=== PATIENT | female | born 1950 | race Asian ===

== ENCOUNTER 2018-10-24 13:34 | Outpatient (CLI) | payer OTHER ==
--- NOTE | 2018-10-24 14:11 | RAD ---
XR Thoracic Spine 2 View History: [T8 compression fracture] Comparison: None. Findings: There is a compression deformity at T8 with approximately 50% anterior height loss with 10% posterior height loss. No other compression fracture is appreciated. Visualized posterior ribs are unremarkable. Impression: T8 compression fracture as described
== END 2018-10-24 13:35 | disposition home or self-care (01) ==
LOC: TBSIIMAG 13:34
PROVIDERS: ATTEND Surgery
DX: S22.069D Unspecified fracture of T7-T8 vertebra, subsequent encounter for fracture with routine healing (principal)
CPT/HCPCS: 72070; 72100

== ENCOUNTER 2018-12-12 09:40 | Outpatient (CLI) | payer OTHER ==
--- NOTE | 2018-12-12 10:14 | RAD ---
Radiograph thoracic spine 3 views: DATE: 12/12/2018 HISTORY: Follow-up T8 compression fracture COMPARISON: 10/24/2018 FINDINGS: Collapse of the T8 vertebral body has not significant changed. There are broad, shallow indentation o f superior endplates of T4 and T5. Diffuse osteopenia. IMPRESSION: No significant interval change in the T8 compression fracture.
== END 2018-12-12 09:41 | disposition home or self-care (01) ==
LOC: TBSIIMAG 09:40
PROVIDERS: ATTEND Surgery
DX: S22.001A Stable burst fracture of unspecified thoracic vertebra, initial encounter for closed fracture (principal)
CPT/HCPCS: 72072

== ENCOUNTER 2019-02-06 13:24 | Outpatient (CLI) | payer OTHER ==
--- NOTE | 2019-02-06 13:43 | RAD ---
Frontal and lateral imaging of the thoracic spine: 02/06/2019 COMPARISON: 12/12/2018 HISTORY: Reevaluate thoracic spine fracture FINDINGS: At C5-6 there is disc space narrowing and mild anterior osteophyte formation. There is mild superior endplate irregularity at T4 and T5, unchanged. There is an anterior wedge compression fracture of the T8 vertebral body with approximately 70% loss of vertebral body height centrally, stable. No new fracture identified. IMPRESSION: Stable thoracic spine imaging. Transcribed Date/Time: 02/06/2019 1:48 PM
== END 2019-02-06 13:25 | disposition home or self-care (01) ==
LOC: TBSIIMAG 13:24
PROVIDERS: ATTEND Surgery
DX: S22.009D Unspecified fracture of unspecified thoracic vertebra, subsequent encounter for fracture with routine healing (principal); S32.009D Unspecified fracture of unspecified lumbar vertebra, subsequent encounter for fracture with routine healing
CPT/HCPCS: 72072